=== PATIENT | female | born 1975 | race Caucasian/White ===

== ENCOUNTER → 2016-09-14 | Outpatient (CLI) | payer OTHER ==
--- NOTE | 2016-09-14 19:28 | MR ---
EXAMINATION TYPE: MR thoracic spine wo con DATE OF EXAM: 09/14/2016 7:22 PM COMPARISON: Thoracic spine x-ray November 24, 2015. HISTORY: Thoracic Spine Pain per order. Mid and low back pain for 7 years per patient. TECHNIQUE: Multiplanar, multisequence imaging of thoracic spine is performed without contrast FINDINGS: Spinal cord shows normal course, caliber, and signal as it courses the thoracic spine. Zuleima tebral body heights and alignment are satisfactory. Disc space heights are maintained. There are smal l posterior disc herniations mildly effacing anterior thecal sac at T5-T6 and T6-T7 levels on sagitta l images. Bone marrow signal intensity is maintained. No significant spurring is noted. Review of axial images confirm small central disc protrusions mildly effacing the anterior thecal sac at T5-T6 and T6-T7 level. Bilateral neural foramina are patent. Axial images at T8-T9 level shows a right paracentral disc protrusion mildly effacing anterolateral t hecal sac on axial image 14. Remainder thoracic levels are felt within normal limits. 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
== END | disposition home or self-care (01) ==
LOC: RADMRIMAIN 18:26
PROVIDERS: ATTEND Psychiatry & Neurology Neurology
DX: M47.814 Spondylosis without myelopathy or radiculopathy, thoracic region (principal)
CPT/HCPCS: 72146

== ENCOUNTER 2017-01-19 14:13 | Emergency (ER) | payer OTHER ==
[2017-01-19 14:24] VITALS: BP 139/80; PULSE 76; RESP 20; TEMP 97.8
--- NOTE | 2017-01-19 14:47 | ED ---
General Adult HPI - General Chief complaint: Back Pain/Injury Stated complaint: right side pain from hip to toes Time Seen by Provider: 01/19/17 14:28 Source: patient, RN notes reviewed Mode of arrival: ambulatory Limitations: no limitations - History of Present Illness Initial comments: This is a 41-year-old female presents emergency Department chief complaint of right-sided sciatic pain for the past 3 days. She reports that she has a history of chronic back pain and does see Dr. Casey and the physician assistant manager [employer] and is on a pain management contract with them. Patient reports that she hasn't taking her [place] 7.5 reports that it is not helping with the pain. She called the office and they told her to come here and have them be consult. Patient reports the pain essentially with some numbness and tingling down her toes. She denies any falls or recent trauma to cause this new-onset of pain. She denies any saddle anesthesias. She reports full range of motion in the hip and knee and toes. She states it feels just like a dull ache and will occasionally get sharp shooting pain whenever she moves a certain direction. - Related Data Home Medications Medication Instructions Recorded Confirmed Omeprazole [PriLOSEC] 20 mg PO AC-BID 07/05/15 09/02/15 HYDROcodone/APAP 7.5-325MG [[place] 1 tab PO TID PRN 09/02/15 09/02/15 7.5-325] Previous Rx's Medication Instructions Recorded Meloxicam [Mobic] 15 mg PO DAILY PRN #0 09/03/15 Cyclobenzaprine [Flexeril] 10 mg PO TID #20 tab 01/19/17 Dexamethasone 0.75 mg PO DAILY #12 tab 01/19/17 Allergies Allergy/AdvReac Type Severity Reaction Status Date / Time Influenza Virus Vaccines Allergy Unknown Verified 01/19/17 14:24 Penicillins Allergy Anaphylaxis Verified 01/19/17 14:24 pneumococcal vaccine Allergy Unknown Verified 01/19/17 14:24 Sulfa (Sulfonamide Allergy Anaphylaxis Verified 01/19/17 14:24 Antibiotics) Review of Systems ROS Statement: Those systems with pertinent positive or pertinent negative responses have been documented in the HPI. ROS Other: All systems not noted in ROS Statement are negative. Past Medical History Past Medical History: Fibromyalgia, Hypertension Additional Past Medical History / Comment(s): arthritis, peptic ulcer, previous high blood pressure but lost weight, back pain History of Any Multi-Drug Resistant Organisms: None Reported Past Surgical History: Cholecystectomy, Hysterectomy, Tubal Ligation Additional Past Surgical History / Comment(s): uterine ablation Past Anesthesia/Blood Transfusion Reactions: No Reported Reaction Past Psychological History: Anxiety Smoking Status: Current every day smoker Past Alcohol Use History: Rare Past Drug Use History: None Reported - Past Family History Father Family Medical History: Cancer, Congestive Heart Failure (CHF) Mother Additional Family Medical History / Comment(s): at 55 from brain aneruysm General Exam - General Exam Comments Initial Comments: Well-appearing 41-year-old female. No acute distress. Limitations: no limitations General appearance: alert, in no apparent distress Head exam: Present: atraumatic, normocephalic, normal inspection Eye exam: Present: normal appearance, PERRL, EOMI. Absent: scleral icterus, conjunctival injection, periorbital swelling ENT exam: Present: normal exam, mucous membranes moist Neck exam: Present: normal inspection. Absent: tenderness, meningismus, lymphadenopathy Respiratory exam: Present: normal lung sounds bilaterally. Absent: respiratory distress, wheezes, rales, rhonchi, stridor Cardiovascular Exam: Present: regular rate, normal rhythm, normal heart sounds. Absent: systolic murmur, diastolic murmur, rubs, gallop, clicks GI/Abdominal exam: Present: soft, normal bowel sounds. Absent: distended, tenderness, guarding, rebound, rigid Extremities exam: Present: normal inspection, full ROM, normal capillary refill. Absent: tenderness, pedal edema, joint swelling, calf tenderness Back exam: Present: normal inspection, tenderness (lumbar spinal tenderness) Expanded Back exam: Sciatic Notch Tenderness: Right, Positive Straight Leg Raise: Right Neurological exam: Present: alert, oriented X3, CN II-XII intact Psychiatric exam: Present: normal affect, normal mood Skin exam: Present: warm, dry, intact, normal color. Absent: rash Course Vital Signs 01/19/17 14:21 Temperature 97.8 F Pulse Rate 76 Respiratory 20 Rate Blood Pressure 139/80 O2 Sat by Pulse 98 Oximetry Medical Decision Making - Medical Decision Making This is a 41-year-old female presents emergency Department chief complaint of right-sided sciatic pain for the past 3 days. She reports that she has a history of chronic back pain and does see Dr. Casey and the physician assistant manager [employer] and is on a pain management contract with them. Patient reports that she hasn't taking her [place] 7.5 reports that it is not helping with the pain. She called the office and they told her to come here and have them be consult. Patient reports the pain essentially with some numbness and tingling down her toes. Without any recent falls or acute trauma I discussed the there is no necessary T to do imaging studies at this time. Patient agrees. Patient case assessment Dr. Ku. Discussed that we can on a short course of steroid, a temperature medication. Discussed that she needs to continue her pain medications as directed. Patient advised to call their office tomorrow for further evaluation. Patient agrees to treatment plan will comply. Return parameters were discussed. Disposition Clinical Impression: Right-sided low back pain with sciatica, Chronic back pain Disposition: HOME SELF-CARE Condition: Good Instructions: Chronic Back Pain (ED), Sciatica (ED) Additional Instructions: Patient advised to take the anti-inflammatory medications as directed. Continue to take her at home pain medication and recommend follow-up with face painter. Return to the emergency department if there are any alarming signs or symptoms occur like saddle anesthesias. Prescriptions: Cyclobenzaprine [Flexeril] 10 mg PO TID #20 tab Dexamethasone 0.75 mg PO DAILY #12 tab Referrals: Eliot Godfrey MD [Primary Care Provider] - 1-2 days Katerina Casey MD [STAFF PHYSICIAN] - 1-2 days Time of Disposition: 15:07
[2017-01-19] MEDS ORDERED: KETOROLAC 60 MG/2 ML VIAL IM STA (14:49)
[2017-01-19] MEDS ORDERED: ORPHENADRINE 30 MG/ML 2 ML VIAL IM STA (14:49)
== END 2017-01-19 15:21 | disposition home or self-care (01) ==
LOC: EC 14:13
DX: M54.41 Lumbago with sciatica, right side (principal); M54.9 Dorsalgia, unspecified; G89.29 Other chronic pain; F17.200 Nicotine dependence, unspecified, uncomplicated; Z88.7 Allergy status to serum and vaccine; Z88.0 Allergy status to penicillin; Z88.2 Allergy status to sulfonamides; Z79.899 Other long term (current) drug therapy
CPT/HCPCS: 99283; 96372 ×2; J2360; J1885

== ENCOUNTER → 2017-08-18 | Outpatient (CLI) | payer OTHER ==
--- NOTE | 2017-08-18 23:03 | MR ---
EXAMINATION TYPE: MR lumbar spine wo con DATE OF EXAM: 08/18/2017 COMPARISON: NONE HISTORY: LBP, BLE radic x 10 years TECHNIQUE: Multiplanar, multisequence images of the lumbar spine were acquired. Lumbar vertebra have normal alignment. Disc spaces are fairly well-maintained. There are small advanced manufacturing engineer ior disc bulging at L4-5 and L5-S1. Neural foramina are widely patent. Lumbar nerve roots appear norm al. There is no compression fracture. There is no lumbar paraspinal mass. I see no focal bone destruc tion. The upper sacroiliac joints appear normal. IMPRESSION: Minor degenerative disc changes at L4-5 and L5-S1 with small posterior disc bulging. No fracture. No spinal stenosis.
== END | disposition home or self-care (01) ==
LOC: RADMRIMAIN 18:22
PROVIDERS: ATTEND Neurological Surgery
DX: M51.27 Other intervertebral disc displacement, lumbosacral region (principal); M47.817 Spondylosis without myelopathy or radiculopathy, lumbosacral region
CPT/HCPCS: 72148